=== PATIENT | male | born 1980 | race Caucasian/White ===

== ENCOUNTER 2017-08-24 14:04 | Emergency (ER) | payer OTHER, SELFPAY ==
[2017-08-24 14:05] VITALS: BP 151/95; PULSE 66; RESP 18; O2SAT 99; BMI 31.5
[2017-08-24 14:06] VITALS: BMI 31.5
--- NOTE | 2017-08-24 14:09 | XR_ITS ---
XR chest 2V HISTORY: ITS.REASON: chest pain ORDERING PHYSICIAN: Mason Mario MD PATIENT AGE: 37 years COMPARISON: None available FINDINGS: The cardiomediastinal silhouette and pulmonary vascularity are within normal limits. The lungs are clear without infiltrates, suspicious nodules, or pleural effusions. Minimal atelectatic or fibrotic changes are present in the left lung base No acute bony abnormalities. IMPRESSION: Minimal left basilar atelectasis or fibrosis otherwise negative
--- NOTE | 2017-08-24 14:09 | HMH.EDGENADL ---
ED Disposition Clinical Impression: Atypical chest pain Disposition: Home, Self-Care Condition on Discharge: Good Instructions: DI for Atypical Chest Pain Additional Instructions: Restart taking hydrochlorothiazide. Additional instructions for CHEST PAIN: See your physician as soon as possible for further evaluation. Return immediately if worsening chest pain, vomiting, shortness of breath, fever, coughing of blood. Referrals: Lamar Lama [Primary Care Provider] - - Critical Care Critical Care Time: No Attestation: On , the high probability of a clinically significant, sudden or life threatening deterioration of the following system(s) required my full and direct attention, intervention and personal management. The time I documented below is in addition to time spent performing reported procedures but includes the following listed in this critical care notation. Medical Decision Making Vital Signs: 08/24/17 14:05 Pulse Rate [Right Radial] 66 Respiratory Rate 18 Blood Pressure [Right Arm] 151/95 Blood Pressure Mean [Right Arm] 113 Blood Pressure Source [Right Arm] Automatic Cuff Blood Pressure Position [Right Arm] Supine 02 Sat by Pulse Oximetry 99 Oxygen Delivery Method Room Air - Lab Data Lab Results 08/24/17 14:15: WBC 9.3, RBC 5.17, Hgb 15.4, Hct 44.8, MCV 86.7, MCH 29.8, MCHC 34.4, RDW 12.3, Plt Count 220, MPV 7.4, Neut % (Auto) 49.2, Lymph % (Auto) 38.3, [place] % (Auto) 10.3 H, Eos % (Auto) 1.8, Baso % (Auto) 0.4, Neut # (Auto) 4.6, Lymph # (Auto) 3.6, [place] # (Auto) 1.0, Eos # (Auto) 0.2, Baso # (Auto) 0.0 08/24/17 14:15: Sodium 140, Potassium 3.7, Chloride 104, Carbon Dioxide 28, Anion Gap 11.7, BUN 16, Creatinine 1.47 H, Estimated Creat Clear 97, Estimated GFR 54 L, Est GFR ( Amer) 65, Glucose 105, Calcium 8.3 L, Total Bilirubin 0.3, AST 14 L, ALT 31, Alkaline Phosphatase 100, Total Creatine Kinase 94, CK-MB (CK-2) < 0.5, CK-MB (CK-2) Rel Index 0.5, Troponin I < 0.02, Total Protein 6.9, Albumin 3.7, Globulin 3.2, Albumin/Globulin Ratio 1.2 08/24/17 14:15: D-Dimer < 100 Result diagrams: 08/24/17 14:15 08/24/17 14:15 Orders (Tests/Meds): ORDERS Category Date Time Status 12-lead EKG Request [ECG Request by /Rupinder] Stat Y 08/24/17 14:07 Ordered - Radiology Data #1 Image(s): Chest Image Reviewed: Yes I have reviewed radiologist's interpretation Minimal left basilar atelectasis or fibrosis - ECG Data Tracing #1 EKG interpreted by Mason Mario MD: Rhythm: sinus Rate: 68 [place]: normal Ectopy: none Conduction: normal ST Segment Changes: none T Wave Changes: none Q Waves: none No evidence of acute ischemia or injury Normal EKG - Fabiano Inquiry Pt receiving controlled substance: No Medical Decision Making Narrative: Patient has had 3 very brief episodes of chest discomfort today. He had a more prolonged episode last night. Given the time course of the symptoms I do not feel a second troponin is needed. He has been pain-free since arrival here. I feel he can be followed up there as an outpatient. I recommended that he follow his primary care physician by calling tomorrow and have further evaluation such as a stress test. Advised to return to the emergency room if he has any worsening or prolonged chest pain. I estimate there is LOW risk for PULMONARY EMBOLISM, ACUTE CORONARY SYNDROME, OR THORACIC AORTIC DISSECTION, thus I consider the discharge disposition reasonable. The patient states that his hydrochlorothiazide was not intolerable and he can restart that until evaluated by his physician. He is agreeable. General Adult HPI - General Chief complaint: Chest Pain Stated complaint: chest pain Mode of Arrival: Family Vehicle Limitations: No Limitations Description of Symptoms (Recalled from ER Triage Doc. by RN): pt states he is having tightness in his middle chest that at times has a numbing/tingling sensation down left arm. symptoms
[2017-08-24 14:25] LABS: Basophils % 0.4 % (0.1-2.0); Eosinophils # 0.2 K/mm3 (0.0-0.4); Eosinophils % 1.8 % (0.1-12.0); Hematocrit 44.8 % (42.0-52.0); Hemoglobin 15.4 g/dL (14.1-18.0); Lymphocytes # 3.6 K/mm3 (0.7-4.5); Lymphocytes % 38.3 K/mm3 (10-50); Mean Corpuscular HGB Conc 34.4 g/dL (31.8-35.4); Mean Corpuscular Hemoglobin 29.8 pg (27.0-31.2); Mean Corpuscular Volume 86.7 fl (80-94); Mean Platelet Volume 7.4 fl (7.4-10.4); Monocytes % 10.3 % (1.7-9.3); Neutrophils # 4.6 K/mm3 (1.8-7.8); Neutrophils % 49.2 % (37.0-80.0); Platelet Count 220 K/mm3 (142-424); Red Blood Count 5.17 M/mm3 (4.60-6.20); Red Cell Distribution Width 12.3 % (11.5-17.5); White Blood Count 9.3 K/mm3 (4.8-10.8)
[2017-08-24 14:41] LABS: D-Dimer < 100 (0-400)
[2017-08-24 14:53] LABS: Alanine Aminotransferase 31 U/L (12-78); Albumin Level 3.7 gm/dL (3.4-5.0); Albumin/Globulin Ratio 1.2 (1.1-1.8); Alkaline Phosphatase 100 U/L (46-116); Anion Gap 11.7 mEq/L (5-15); Aspartate Amino Transferase 14 U/L (15-37); Bilirubin,Total 0.3 mg/dL (0.2-1.0); Blood Urea Nitrogen 16 mg/dL (7-18); Calcium 8.3 mg/dL (8.5-10.1); Carbon Dioxide 28 mmol/L (21.0-32.0); Chloride 104 mmol/L (98-107); Creatine Kinase 94 U/L (39-308); Creatinine Clearance Estimated 97 mL/min (0-300); Creatinine,Serum 1.47 mg/dL (0.70-1.30); Estimated Glomerular Filt Rate 54 ml/min (>60); GFR (African American) 65 ML/MIN (>60); Globulin 3.2 gm/dl (1.3-3.2); Glucose 105 mg/dL (74-106); Potassium 3.7 mmoL/L (3.5-5.1); Sodium 140 mmol/L (136-145); Total Protein,Serum 6.9 gm/dL (6.4-8.2); Troponin I < 0.02 ng/ml (0.00-0.06)
[2017-08-24 14:56] LABS: CKMB Relative Index 0.5 U/L (0-4.0); Creatine Kinase MB < 0.5 mg/ml (0.0-3.6)
[2017-08-24 16:28] VITALS: BP 148/86; PULSE 76; RESP 20; TEMP 37; O2SAT 99
== END 2017-08-24 16:28 | disposition home or self-care (01) ==
PROVIDERS: Emergency Provider Emergency Medicine; PCP Nurse Practitioner Family
DX: R07.89 Other chest pain (principal); I10 Essential (primary) hypertension
CPT/HCPCS: 71046; 80053; 82550; 82553; 84484; 85025; 85378; 93005; 93041; 99283

== ENCOUNTER → 2017-09-12 11:43 | Outpatient (CLI) | payer OTHER, SELFPAY ==
--- NOTE | 2017-09-12 11:47 | NM_ITS ---
SPECT MYOCARDIAL PERFUSION SCAN, REST AND STRESS: EXERCISE STRESS: [facility] REVIEW QGS EF AND WALL MOTION EVALUATION: QPS - PERFUSION EVALUATION: HISTORY: precordial Chest pain PROCEDURE: Rest imaging performed after administration of10.28 millicuries Tc MIBI. Dose administered at12:00 p.m., with imaging thereafter. Stress imaging was then performed [id number] minutes 15 seconds of exercise stress. The patient achieved a heart [id number] with projected heart rate of156 . Resting BP131/79 with stress 150/70. At maximum exercise stress,31.8 millicuries Tc MIBI administered at1:40 p.m. with [id number] minutes thereafter. FINDINGS: Perfusion Evaluation: The single slice spect images as well as the [facility] bull's-eye data summary were reviewed. Wall Motion and Ejection Fraction Evaluation: Gated SPECT review and analysis used to evaluate these features. There is a 61 % left ventricular ejection fraction. There seems to be good wall motion Stress images reveal mildly decreased activity in the apex while rest images reveal severely decreased activity in the apex which involves the septum and a portion of the anterior wall. The inferior wall is also diminished with rest images. IMPRESSION: Clinical correlation is advised. Patient has excellent exercise capacity however there is rest images are clearly and significantly abnormal suggesting reverse redistribution. Normal ejection fraction normal wall motion
== END ==
PROVIDERS: PCP Nurse Practitioner Family; Visit Provider Nurse Practitioner Family
DX: R07.2 Precordial pain (principal)
CPT/HCPCS: 78452; 93017; A9502

== ENCOUNTER → 2017-10-11 07:48 | Outpatient (CLI) | payer OTHER, SELFPAY ==
--- NOTE | 2017-10-11 07:51 | CA_ITS ---
CA echo doppler complete PROCEDURE: INDICATIONS FOR THE TEST: Chest pain+ COPD Heart Murmur Tobacco Smoking Palpitations Fatigue Syncope Edema Hypertension+Diabetes Mellitus Rheumatic Fever SOB+LIN Obesity Hyperlipidemia Family History HD Additional History PATIENT INFORMATION HEIGHT: 70 WEIGHT:223 GENDER: Male B/P:140/84 2-D/M-MODE INTERPRETATION: 2-D MEASUREMENTS OBSERVED VALUES IN CMS Right Ventricular Dimension (RVDd) 2.5 Interventricular Septum (Thickness)(IVsd) 1.3 Left Ventricular Internal Dimensions(LVIDd) 5.7 Left Ventricular Posterior Wall (Thickness)(LVPWd) 0.7 Aortic Root 4.3 Aortic Cusp Separation 2.8 Left Atrial Dimensions (LAD) 3.4 2D 1. Left atrium is normal size, left ventricle is normal size, visually estimated ejection fraction 55% with no obvious regional wall motion abnormality. 2. The right atrium and right ventricle are normal size and contractility. 3. The aortic, mitral and tricuspid valvular grossly normal. 4. The pulmonic valve is structurally normal 5. No significant pericardial effusion noted. DOPPLER INTERROGATION: Doppler interrogation of the aortic, mitral and tricuspid valvular presence of mild mitral and tricuspid regurgitation, tricuspid and jet velocity insufficient for calculation of the right ventricular systolic pressure, diastolic parameters are within normal range. CONCLUSION: 1. Normal left ventricular size, preserved left ventricular systolic function, visually estimated ejection fraction 55% no signal wall motion abnormality, diastolic parameters are within normal range. 2. Mild mitral and tricuspid addition 3. No significant pericardial effusion noted.
== END ==
PROVIDERS: PCP Nurse Practitioner Family; Visit Provider Internal Medicine Cardiovascular Disease
DX: R07.9 Chest pain, unspecified (principal); K21.9 Gastro-esophageal reflux disease without esophagitis; I10 Essential (primary) hypertension
CPT/HCPCS: 93306

== ENCOUNTER → 2018-08-16 15:12 | Outpatient (CLI) | payer OTHER, SELFPAY ==
--- NOTE | 2018-08-16 15:31 | US_ITS ---
US scrotum HISTORY: ITS.REASON: TESTICULAR MASS ORDERING PHYSICIAN: Lamar Lama PATIENT AGE: 38 years Comparison: None FINDINGS: RIGHT TESTICLE: The right testicle has an unremarkable appearance measuring Right testicle. No testicular mass, hydrocele, spermatocele, or varicocele evident. Blood flow is noted to the right testicle. LEFT TESTICLE: The left testicle has an unremarkable appearance measuringLeft testicle. No mass, hydrocele, spermatocele, or varicocele evident. Blood flow is noted to the left testicle. There is a small 6 x 3 mm area of isoechogenicity on the left appears to be within the scrotal wall and not the testicle. This is of uncertain clinical significance IMPRESSION: 1. No evidence of testicular mass. Bilateral blood flow noted.. 2. Small hypoechoic nodular lesion within the scrotal wall on the left corresponding to palpable abnormality. Etiology indeterminate. Recommend follow-up to confirm stability
== END ==
PROVIDERS: PCP Nurse Practitioner Family; Visit Provider Nurse Practitioner Family
DX: N50.89 Other specified disorders of the male genital organs (principal)
CPT/HCPCS: 76870

== ENCOUNTER 2022-12-24 22:27 | Emergency (ER) | payer BC, SELFPAY ==
[2022-12-24 22:27] VITALS: BP 146/97; PULSE 73; RESP 16; TEMP 36.7; O2SAT 96; BMI 31.5
--- NOTE | 2022-12-24 22:39 | XR_ITS ---
PROCEDURE INFORMATION: Exam: XR Chest Exam date and time: 12/24/2022 11:05 PM Age: 42 years old Clinical indication: Injury or trauma; Other: Kicked by horse; Additional info: Coughing up blood TECHNIQUE: Imaging protocol: Radiologic exam of the chest. Views: 2 views. COMPARISON: No relevant prior studies available. FINDINGS: Lungs: Lungs are clear. Pleural spaces: No pleural effusion. No pneumothorax. Heart/Mediastinum: Normal cardiac silhouette. Right paratracheal thickening is present. Bilateral hilar prominence. Bones/joints: No acute osseous abnormality. IMPRESSION: 1. No radiographic evidence of acute cardiothoracic injury. 2. Right paratracheal thickening and bilateral hilar prominence corresponding to mediastinal and hilar lymphadenopathy seen on CT chest.
--- NOTE | 2022-12-24 22:42 | CT_ITS ---
PROCEDURE INFORMATION: Exam: CTA Chest With Contrast Exam date and time: 12/24/2022 11:21 PM Age: 42 years old Clinical indication: Cough with hemorrhage; Additional info: Coughing up blood after being kicked by horse TECHNIQUE: Imaging protocol: Computed tomographic angiography of the chest with contrast. Exam focused on the arteries. 3D rendering (Not supervised by radiologist): MIP and/or 3D reconstructed images were created by the technologist. Radiation optimization: All CT scans at this facility use at least one of these dose optimization techniques: automated exposure control; mA and/or kV adjustment per patient size (includes targeted exams where dose is matched to clinical indication); or iterative reconstruction. Contrast material: ISOVUE; Contrast volume: 70 ml; Contrast route: INTRAVENOUS (IV); REPORTING DATA: Count of CT and Cardiac NM exams in prior 12 months: This patient has received 0 known CTs and 0 known cardiac nuclear medicine studies in the 12 months prior to the current study. COMPARISON: CR Chest 12/24/2022 11:05 PM FINDINGS: Pulmonary arteries: Normal caliber of the main pulmonary artery measuring 2.3 cm in diameter. Pulmonary arteries are well opacified to the mid subsegmental level. No convincing pulmonary defects seen. Aorta: Motion artifact at the aortic root and ascending aorta limits accurate measurement and assessment for acute traumatic aortic injury. Suggestion of ectasia of the sinuses of Valsalva measuring up to 4.5 cm diameter. Normal caliber of the ascending aorta measuring 3.1 cm diameter. No evidence of intimal injury of the aortic arch and descending thoracic aorta. Lungs: No consolidation. Anterior right upper lobe 4 mm pulmonary nodule on series 5, image 68. Calcified nodule in the left lower lobe. Perifissural right lower lobe pulmonary nodule compatible with benign intrapulmonary lymph node. Pleural spaces: Unremarkable. No pneumothorax. No pleural effusion. Heart: Unremarkable. No cardiomegaly. No pericardial effusion. Lymph nodes: Diffuse enlargement of lymph nodes in the mediastinum and bilateral binu, largest is a carrol conglomerate in the right upper paratracheal distribution measuring 2 x 2 cm. Subcarinal lymph node measures 1.6 cm in short axis. Some lymph nodes demonstrate calcification. Bones/joints: Unremarkable. No acute fracture. Soft tissues: Unremarkable. IMPRESSION: 1. No evidence of acute traumatic injury in the chest. 2. Motion artifact limits evaluation of the aortic root and ascending aorta but suggestion of ectatic aortic root, difficult to accurately measure but may measure up to 4.5 cm diameter. 3. Diffuse enlarged mediastinal and hilar lymph nodes, some of which are calcified . Given lymph node distribution, sarcoidosis may be considered. 4. Anterior right upper lobe 4 mm pulmonary nodule. If patient with risk factors for malignancy, follow-up imaging may be obtained in 12 months per Fleischner guidelines.
[2022-12-24 22:46] LABS: Basophils % 0.3 % (0.1-2.0); Chloride 102 mmol/L (98-107); Eosinophils # 0.2 K/mm3 (0.0-0.4); Eosinophils % 2.5 % (0.1-12.0); Hematocrit 47.6 % (42.0-52.0); Hemoglobin 15.8 g/dL (14.1-18.0); Lymphocytes % 36.4 % (10-50); Mean Corpuscular HGB Conc 33.1 g/dL (31.8-35.4); Mean Corpuscular Hemoglobin 29.4 pg (27.0-31.2); Mean Corpuscular Volume 88.7 fl (80-94); Mean Platelet Volume 7.9 fl (7.4-10.4); Monocytes # 0.9 K/mm3 (0.1-1.0); Monocytes % 10.8 % (1.7-9.3); Neutrophils # 4.1 K/mm3 (1.8-7.8); Platelet Count 221 K/mm3 (142-424); Red Blood Count 5.37 M/mm3 (4.60-6.20); Red Cell Distribution Width 13.4 % (11.5-17.5); White Blood Count 8.3 K/mm3 (4.8-10.8)
[2022-12-24 22:47] LABS: Potassium 3.9 mmoL/L (3.5-5.1); Sodium 138 mmol/L (136-145)
[2022-12-24 22:49] LABS: Blood Urea Nitrogen 14 mg/dl (9-20); Creatinine Clearance Estimated 113 mL/min (50-200); Estimated Glomerular Filt Rate 66 ml/min (>60); GFR (African American) 80 ML/MIN (>60)
[2022-12-24 22:50] LABS: Alanine Aminotransferase 26 U/L (12-78); Albumin Level 4.1 g/dl (3.5-5.0); Albumin/Globulin Ratio 1.5 (1.1-1.8); Alkaline Phosphatase 92 U/L (38-126); Anion Gap 12.9 mEq/L (5-15); Aspartate Amino Transferase 35 U/L (17-59); Bilirubin,Total 0.3 mg/dl (0.2-1.3); Carbon Dioxide 27 mmol/L (22.0-30.0); Globulin 2.8 g/dL (1.3-3.2); Glucose 134 mg/dl (74-100); Total Protein,Serum 6.9 g/dl (6.3-8.2)
--- NOTE | 2022-12-24 22:58 | HMH.EDGENADL ---
Discharge Plan Disposition Patient Disposition: Home, Self-Care Prescriptions Prescriptions: No Action No Known Home Medications Referrals Follow up/Referrals: Na Bautista PA [Primary Care Provider] - See instructions Clinical Impressions Clinical Impression: Chest wall contusion, Mediastinal lymphadenopathy Instructions Patient Instructions: DI for Contusion Discharge ED Provider: Valencia (ED)Vin General Adult HPI General Chief complaint: PAIN Stated complaint: AO 12/23, vomiting blood Time Seen by Provider: 12/24/22 22:30 Mode of Arrival: Ambulatory Source of Information: Patient, Spouse and Medical Record Limitations: No Limitations Description of Symptoms (Recalled from ER Triage Doc. by RN): Pt reports being kicked by a horse yesterday. Pt came in tonight due to coughing up blood tonight when he went to lay down. Pt denies any pain other than the left side of his chest/ribs where the horse kicked him. No obvious brusing or deformity to affected area. No signs of crepitus. History of Present Illness HPI narrative: kicked in lt lat chest yesterday and and had episode of cough blood Onset (ago): day(s) Location: chest Severity: moderate Associated symptoms: denies other symptoms Related Data Home Medications Medication Instructions Recorded Confirmed No Known Home Medications 12/24/22 12/24/22 Allergies Allergy/AdvReac Type Severity Reaction Status Date / Time No Known Allergies Allergy Verified 08/29/18 12:42 [facility] Disclaimer: The information contained in this section may have been updated after the patient was seen, as this information can be updated by other users. Social History (System 08/24/17 @ 15:57 by Leonor Casiano) Smoking Status: Never smoker alcohol intake: current current occupational status: employed Travel in the last 8 weeks: None ROS Obtained: Yes All systems reviewed & no additional complaints except as documented Physical Exam General General appearance: alert Head Head exam: normocephalic Eye Eye exam: Present PERRL and EOMI ENT ENT exam: Present mucous membranes moist Neck Neck exam: Present trachea midline Chest Chest inspection: Present tenderness Respiratory Respiratory exam: Present normal lung sounds bilaterally; Absent respiratory distress Cardiovascular Cardiovascular exam: Present regular rate Abdominal Exam Abdominal exam: Present soft; Absent tenderness Extremities Exam Extremities exam: Present full ROM Neurological Exam Neurological exam: Present alert, oriented X3 and CN II-XII intact; Absent motor sensory deficit Psychiatric Psychiatric exam: Present normal affect Skin Skin exam: Absent rash Medical Decision Making Medical Records Medical records reviewed: Yes I reviewed the patient's medical records. Fabiano Inquiry Pt receiving controlled substance: No Vital Signs: 12/24/22 22:27 Temperature 98.1 F Temperature Source Oral Pulse Rate [Right Radial] 73 Respiratory Rate 16 Blood Pressure [Right Arm] 146/97 H Blood Pressure Mean [Right Arm] 113 Blood Pressure Source [Right Arm] Automatic Cuff Blood Pressure Position [Right Arm] Sitting 02 Sat by Pulse Oximetry 96 Oxygen Delivery Method Room Air Lab Data Lab results reviewed: Yes I reviewed the patient's lab results. Lab Results 12/24/22 22:35: WBC 8.3, RBC 5.37, Hgb 15.8, Hct 47.6, MCV 88.7, MCH 29.4, MCHC 33.1, RDW 13.4, Plt Count 221, MPV 7.9, Neut % (Auto) 50.0, Lymph % (Auto) 36.4, [place] % (Auto) 10.8 H, Eos % (Auto) 2.5, Baso % (Auto) 0.3, Neut # (Auto) 4.1, Lymph # (Auto) 3.0, [place] # (Auto) 0.9, Eos # (Auto) 0.2, Baso # (Auto) 0.0 12/24/22 22:35: Sodium 138, Potassium 3.9, Chloride 102, Carbon Dioxide 27, Anion Gap 12.9, BUN 14, Creatinine 1.20, Estimated Creat Clear 113, Estimated GFR 66, Est GFR ( Amer) 80, Glucose 134 H, Calcium 9.0, Total Bilirubin 0.3, AST 35, ALT 26, Alkaline Phosphatase 92, Total Protein 6.
--- NOTE | 2022-12-24 23:14 | PC.NURSE ---
Pt gone to RAD via wheelchair
--- NOTE | 2022-12-24 23:25 | PC.NURSE ---
Pt returned from RAD
--- NOTE | 2022-12-25 00:09 | PC.NURSE ---
Rounded on pt. No needs voiced. Pt advised he felt good
--- NOTE | 2022-12-25 00:18 | CT_ITS ---
PROCEDURE INFORMATION: Exam: CTA Chest With Contrast Exam date and time: 12/25/2022 12:30 AM Age: 42 years old Clinical indication: Cough; Additional info: Trauma TECHNIQUE: Imaging protocol: Computed tomographic angiography of the chest with contrast. Exam focused on the arteries. 3D rendering (Not supervised by radiologist): MIP and/or 3D reconstructed images were created by the technologist. Radiation optimization: All CT scans at this facility use at least one of these dose optimization techniques: automated exposure control; mA and/or kV adjustment per patient size (includes targeted exams where dose is matched to clinical indication); or iterative reconstruction. Contrast material: ISOVUE; Contrast volume: 100 ml; Contrast route: INTRAVENOUS (IV); REPORTING DATA: Count of CT and Cardiac NM exams in prior 12 months: This patient has received [address] and 0 known cardiac nuclear medicine studies in the 12 months prior to the current study. COMPARISON: CT ANGIO CHEST PE PROTOCOL 12/24/2022 11:21 PM FINDINGS: Pulmonary arteries: Normal caliber of the main pulmonary artery. No evidence of acute pulmonary embolism to the proximal-mid subsegmental level. Aorta: Ectasia of the sinuses of Valsalva measuring up to 4.5 cm in diameter. Motion artifact the ascending aorta limits evaluation. Within this limitation: No evidence of acute traumatic aortic injury. Small caliber bronchial artery arising from the aortic arch. Lungs: No consolidation. Calcified granulomas in the left lower lobe. Pleural spaces: Unremarkable. No pneumothorax. No pleural effusion. Heart: Unremarkable. No cardiomegaly. No pericardial effusion. Lymph nodes: Enlarged lymph nodes throughout the mediastinum and bilateral binu which are partially calcified. Bones/joints: Unremarkable. No acute fracture. Soft tissues: Unremarkable. IMPRESSION: 1. No evidence of acute traumatic injury in the chest. 2. Ectasia of the aortic sinuses of Valsalva measuring up to 4.5 cm without aneurysmal dilation of the ascending aorta. 3. Enlarged lymph nodes throughout the mediastinum and binu, some which are calcified, lymph node distribution suspicious for sarcoidosis.
[2022-12-25 01:27] VITALS: BP 140/85; PULSE 70; RESP 18; TEMP 36.6; O2SAT 99
== END 2022-12-25 01:44 | disposition home or self-care (01) ==
PROVIDERS: Emergency Provider Emergency Medicine; PCP Physician Assistant
DX: S20.219A Contusion of unspecified front wall of thorax, initial encounter (principal); R59.9 Enlarged lymph nodes, unspecified; W55.12XA Struck by horse, initial encounter
CPT/HCPCS: 71046; 71275; 80053; 85025; 96361; 96374; 96375; 99284; 99285; Q9967